=== PATIENT | female | born 1995 | race African-American/Black ===

== ENCOUNTER 2022-01-18 11:03 | Emergency (ER) | payer MEDICAID, OTHER ==
[~2022-01-18] VITALS: Ht 152.4 cm; Wt 67.0 kg
[~2022-01-18 11:03] MED LIST: AMOX-424 MT
[2022-01-18 11:14] VITALS: BP 113/75
[2022-01-18] MEDS ORDERED: HYDROCODONE/ACETAMINOPHEN 5/325MG TABLET PO ONE (12:15)
[2022-01-18 13:00] LABS: CLARITY URINE CLEAR (CLEAR); COLOR URINE YELLOW (YELLOW); KETONES URINE NEGATIVE (NEGATIVE); LEUKOCYTE ESTERASE URINE TRACE (NEGATIVE); NITRITE URINE NEGATIVE (NEGATIVE); OCCULT BLOOD URINE NEGATIVE (NEGATIVE); PH URINE 5.5 (4.5-8.0); PROTEIN URINE TRACE (NEGATIVE); SPECIFIC GRAVITY URINE 1.013 (1.005-1.030); UROBILINOGEN URINE 0.2 E.U./dL (0.2-1.0)
[2022-01-18 13:21] LABS: BASOPHILS % 0.2 % (0.0-2.0); EOSINOPHILS % 0.6 % (0.0-5.0); HEMATOCRIT. 39.7 % (36.0-48.0); HEMOGLOBIN. 13.7 g/dL (12.0-16.0); LYMPHOCYTES % 16.5 % (20.0-50.0); MEAN CORPUSCULAR HEMOGLOBIN 30.4 pg (28.0-32.0); MEAN PLATELET VOLUME 8.6 fl (7.4-10.4); MONOCYTES % 12.3 % (2.0-8.0); NEUTROPHILS % 70.4 % (40.0-76.0); PLATELET 279 x1000/uL (130-400); RED BLOOD CELL COUNT 4.51 mill/uL (4.2-5.4); RED CELL DISTRIBUTION WIDTH 16.2 % (11.6-14.6)
[2022-01-18 13:25] LABS: CHLORIDE 106 mEq/L (98-107)
[2022-01-18] MEDS ORDERED: IBUP-2029 MT (13:59)
[2022-01-18] MEDS ORDERED: IBUPROFEN 600MG TABLET PO ONE (14:00)
== END 2022-01-18 14:16 | disposition home or self-care (01) ==
LOC: ER 11:41
DX: M53.3 Sacrococcygeal disorders, not elsewhere classified (principal)
CPT/HCPCS: 36415; 72220; 80053; 81003; 81025; 85025; 99284

== ENCOUNTER 2022-01-20 11:00 | Emergency (ER) | payer MEDICAID, OTHER ==
[~2022-01-20] VITALS: Ht 152.4 cm; Wt 59.0 kg
[~2022-01-20 11:00] MED LIST changes: +IBUP-2029 MT
[2022-01-20 11:12] VITALS: BP 114/72
[2022-01-20] MEDS ORDERED: SULFAMETHOXAZOLE/TRIMETHOPRIM 800/160MG TABLET PO ONE (13:45)
[2022-01-20] MEDS ORDERED: SULF1TAB48 MT ×2 (13:48→13:59)
[2022-01-20] MEDS ORDERED: DOXY-326 MT ×2 (13:48→13:59)
== END 2022-01-20 14:30 | disposition home or self-care (01) ==
LOC: ER 11:00
DX: L03.317 Cellulitis of buttock (principal)
CPT/HCPCS: 81025; 99283

== ENCOUNTER 2023-09-09 16:43 | Emergency (ER) | payer MEDICAID, OTHER ==
[~2023-09-09] VITALS: Ht 152.4 cm; Wt 59.0 kg
[~2023-09-09 16:43] MED LIST changes: +DOXY-456 MT; +SULF1TAB48 MT
[2023-09-09 17:17] VITALS: BP 107/53; PULSE 71; RESP 16; TEMP 97.9; O2SAT 100
== END 2023-09-09 18:03 | disposition home or self-care (01) ==
LOC: ER 16:43
DX: M79.645 Pain in left finger(s) (principal)
CPT/HCPCS: 73140; 99283

== ENCOUNTER 2023-10-05 10:54 | Emergency (ER) | payer OTHER ==
[~2023-10-05] VITALS: Ht 152.4 cm; Wt 60.0 kg
[2023-10-05 11:01] VITALS: TEMP 98.4; O2SAT 97
[2023-10-05] MEDS ORDERED: ZOLP5TAB2 MT (13:21)
[2023-10-05] MEDS: HYDROCODONE/ACETAMINOPHEN 7.5/325MG TABLET PO ONE (13:58)
[2023-10-05 14:01] VITALS: BP 123/63; PULSE 70; RESP 16
== END 2023-10-05 14:02 | disposition home or self-care (01) ==
LOC: ER 10:54
DX: S83.411A Sprain of medial collateral ligament of right knee, initial encounter (principal); Z79.899 Other long term (current) drug therapy; W18.30XA Fall on same level, unspecified, initial encounter; Y93.89 Activity, other specified; Y92.89 Other specified places as the place of occurrence of the external cause; Y99.8 Other external cause status
CPT/HCPCS: 73560; 99283; Z7610 ×2; L1830

== ENCOUNTER 2023-11-14 10:53 | Emergency (ER) | payer OTHER ==
[~2023-11-14] VITALS: Ht 152.4 cm; Wt 65.0 kg
[~2023-11-14 10:53] MED LIST changes: -DOXY-456 MT; +DOXY100C74 MT
[2023-11-14 10:57] VITALS: BP 105/62; PULSE 57; RESP 16; TEMP 98.3; O2SAT 100; O2SAT 99
[2023-11-14] MEDS ORDERED: NAPR-681 PO (12:50)
== END 2023-11-14 13:58 | disposition home or self-care (01) ==
LOC: ER 11:02
DX: S89.81XA Other specified injuries of right lower leg, initial encounter (principal); W18.39XA Other fall on same level, initial encounter; Y93.89 Activity, other specified; Y92.89 Other specified places as the place of occurrence of the external cause; Y99.8 Other external cause status
CPT/HCPCS: 73562; 99283